=== PATIENT | female | born 1970 | race Caucasian/White ===

== ENCOUNTER 2021-09-06 22:49 | Emergency (ER) | payer OTHER ==
[2021-09-06 23:40] VITALS: RESP 18
[2021-09-06] MEDS ORDERED: ACETAMINOPHEN TAB 500 MG TAB PO STA (23:42)
[2021-09-07 01:45] VITALS: BP 129/85; PULSE 91; TEMP 99.3
--- NOTE | 2021-09-07 01:53 | ED ---
Fever HPI - General Chief Complaint: Fever Stated Complaint: covid swab Time Seen by Provider: 09/07/21 01:51 Source: patient, RN notes reviewed Mode of arrival: ambulatory Limitations: physical limitation - History of Present Illness Initial Comments: Patient is a 51-year-old female that presents to the emergency department complaining of fever and upper respiratory tract symptoms. She denied any other issues or complaints. She was otherwise well-appearing. She wanted a Covid test. She denied any chest pain headache nausea vomiting diarrhea constipation fatigue chills. - Related Data Allergies Allergy/AdvReac Type Severity Reaction Status Date / Time No Known Allergies Allergy Verified 09/06/21 23:40 Review of Systems ROS Statement: Those systems with pertinent positive or pertinent negative responses have been documented in the HPI. ROS Other: All systems not noted in ROS Statement are negative. Past Medical History Past Medical History: Hypertension History of Any Multi-Drug Resistant Organisms: None Reported Past Surgical History: No Surgical Hx Reported Past Psychological History: No Psychological Hx Reported Smoking Status: Never smoker Past Alcohol Use History: None Reported Past Drug Use History: None Reported General Exam Limitations: physical limitation General appearance: alert, in no apparent distress, obese Head exam: Present: atraumatic, normocephalic, normal inspection Eye exam: Present: normal appearance, PERRL, EOMI. Absent: scleral icterus, conjunctival injection, periorbital swelling ENT exam: Present: normal exam, mucous membranes moist Neck exam: Present: normal inspection Respiratory exam: Present: normal lung sounds bilaterally. Absent: respiratory distress, wheezes, rales, rhonchi, stridor Cardiovascular Exam: Present: regular rate, normal rhythm, normal heart sounds. Absent: systolic murmur, diastolic murmur, rubs, gallop, clicks Extremities exam: Present: normal inspection, full ROM, normal capillary refill. Absent: tenderness, pedal edema, joint swelling, calf tenderness Neurological exam: Present: alert, oriented X3 Psychiatric exam: Present: normal affect, normal mood Skin exam: Present: warm, dry, intact, normal color. Absent: rash Course Vital Signs 09/06/21 09/07/21 23:37 01:44 Temperature 102.2 F H 99.3 F Pulse Rate 123 H 91 Respiratory 18 18 Rate Blood Pressure 124/74 129/85 O2 Sat by Pulse 93 L 95 Oximetry Medical Decision Making - Medical Decision Making 51-year-old female complaining of fever. Tylenol 650, Covid test ordered. Test positive. Patient does meet criteria for monoclonal antibodies but declined at this time. Patient was informed she can take Tylenol Motrin alternating every 3 hours as needed for fever control. Case discussed with Dr. Child. - Lab Data Lab Results 09/07/21 Range/Units 00:06 Coronavirus (PCR) Detected A (Not Detectd) Disposition Clinical Impression: COVID Disposition: HOME SELF-CARE Condition: Stable Instructions (If sedation given, give patient instructions): Fever in Adults (ED) Additional Instructions: Please return to the Emergency Department if symptoms worsen or any other concerns. Follow-up with primary care in 1-2 days. Conservative management with Tylenol Motrin alternating every 3 hours as needed for fever. Is patient prescribed a controlled substance at d/c from ED?: No Referrals: None,Stated [Primary Care Provider] - 1-2 days Time of Disposition: 01:53
== END 2021-09-07 02:00 | disposition home or self-care (01) ==
LOC: EC 22:49
DX: U07.1 COVID-19 (principal); I10 Essential (primary) hypertension
CPT/HCPCS: 87635; 99283